=== PATIENT | female | born 1985 | race Caucasian/White ===

== ENCOUNTER 2017-01-29 05:54 | Emergency (ER) | payer OTHER ==
[~2017-01-29] VITALS: Ht 175.3 cm; Wt 90.0 kg
[~2017-01-29 05:54] MED LIST: IBUP600 PO; OXYC1SOL5 PO
[2017-01-29 05:57] VITALS: PULSE 175; RESP 20; O2SAT 98
[2017-01-29 06:00] VITALS: RESP 18; O2SAT 100
[2017-01-29 06:04] VITALS: BP 142/78; PULSE 177; RESP 18; O2SAT 97
[2017-01-29] MEDS ORDERED: ADENOSINE IV SOLN 3 MG/ML 2 ML VIAL ONE (06:06)
[2017-01-29 06:11] VITALS: BP 131/70; PULSE 105; RESP 18; O2SAT 99
[2017-01-29] MEDS ORDERED: ADENOSINE IV SOLN 3 MG/ML 2 ML VIAL IV PUSH ONE (06:15)
[2017-01-29] MEDS ORDERED: SODIUM CHLORIDE 0.9% FLUSH 10 ML FLUSH IVF PRN (06:15)
[2017-01-29 06:40] LABS: AUTOMATED NEUTROPHIL # 11.2 TH/MM3 (1.8-7.7); BASOPHIL # 0.1 TH/MM3 (0-0.2); BASOPHIL % 0.4 % (0.0-2.0); EOSINOPHIL # 0.1 TH/MM3 (0-0.4); EOSINOPHIL % 0.8 % (0.0-4.0); HEMATOCRIT 44.8 % (35.0-46.0); LYMPH % 31.3 % (9.0-44.0); LYMPHOCYTE # 5.7 TH/MM3 (1.0-4.8); MEAN CELL VOLUME 91.4 FL (80.0-100.0); MONO % 5.6 % (0.0-8.0); NEUT % 61.9 % (16.0-70.0); PLATELET COUNT 223 TH/MM3 (150-450); RED BLOOD COUNT 4.91 MIL/MM3 (4.00-5.30); WHITE BLOOD COUNT 18.1 TH/MM3 (4.0-11.0)
[2017-01-29 06:44] LABS: HEMO FLAGS AUTO DIFF
[2017-01-29 06:46] LABS: APTT (PATIENT) 25.7 SEC (24.3-30.1); INTERNATIONAL NORMALIZED RATIO 0.9 RATIO; PROTHROMBIN TIME - PATIENT 10.4 SEC (9.8-11.6)
--- NOTE | 2017-01-29 06:54 | RADRPT ---
EXAM DATE/TIME: 01/29/2017 06:34 [place] COMPARISON: No previous studies available for comparison. INDICATIONS : Chest pain. MEDICAL HISTORY : None. SURGICAL HISTORY : None. ENCOUNTER: Initial ACUITY: 1 day PAIN SCORE: 7/10 LOCATION: Bilateral chest FINDINGS: A single view of the chest demonstrates the lungs to be symmetrically aerated without evidence of mas s, infiltrate or effusion. The cardiomediastinal contours are unremarkable. Osseous structures are intact. CONCLUSION: No acute cardiopulmonary process. Jitendra Chance MD on January 29, 2017 at 6:52 Board Certified Radiologist. This report was verified electronically.
[2017-01-29 07:03] LABS: ANION GAP 8 MEQ/L (5-15); BICARBONATE 23.7 MEQ/L (21.0-32.0); BLOOD UREA NITROGEN 10 MG/DL (7-18); CHLORIDE 106 MEQ/L (98-107); GLOMERULAR FILTRATION RATE 105 ML/MIN (>89); POTASSIUM 3.9 MEQ/L (3.5-5.1); SODIUM (NA) 138 MEQ/L (136-145)
[2017-01-29 07:04] VITALS: BP 115/67; PULSE 109; RESP 24; O2SAT 99
[2017-01-29 07:04] LABS: CREATINE KINASE 46 U/L (26-192)
[2017-01-29 07:21] LABS: PLATELET ESTIMATE SMEAR NORMAL (NORMAL); PLATELET MORPHOLOGY NORMAL (NORMAL); POLYS (SEG NEUTROPHILS) 55 % (16-70); SCAN/DIFF FINAL DIFF MANUAL; WBC DIFF SAMPLE 100
--- NOTE | 2017-01-29 07:22 | PD ---
Physical Exam Date Seen by Provider: Jan 29, 2017 Time Seen by Provider: 07:00 Narrative Case signed out to me by Dr. Riley at 7 AM, please see previous notes for further details, here with SVTs. She was given several doses of it in accord with conversion to normal sinus rhythm at a rate of 90 bpm. She is much more comfortable now. Lab work did not indicate significant metabolic issues. Her TSH is somewhat depressed. She has no previous thyroid history. On reevaluation at 7:20 AM, she is awake, alert, oriented 3, states she feels much better. She has no signs of anxiety or any other symptoms. I do not think that this is a thyroid storm. However, she will need further evaluation of her thyroid function and cardiac function. She should avoid possible triggers such as drug and alcohol use, caffeine use. She should follow-up with her primary care physician. Return for worsening in symptoms as necessary. The plan has been discussed with her and she states understanding. Data Data Last Documented VS Vital Signs Date Time Temp Pulse Resp B/P (MAP) Pulse Ox O2 Delivery O2 Flow Rate FiO2 01/29/17 07:04 109 24 115/67 (83) 99 Nasal Cannula 2.00 Orders Orders Adenosine Inj (Adenocard Inj) (01/29/17 06:06) Basic Metabolic Panel (Bmp) (01/29/17 06:13) Ckmb (Isoenzyme) Profile (01/29/17 06:13) Complete Blood Count With Diff (01/29/17 06:13) Magnesium (Mg) (01/29/17 06:13) Prothrombin Time / Inr (Pt) (01/29/17 06:13) Act Partial Throm Time (Ptt) (01/29/17 06:13) Troponin I (01/29/17 06:13) Chest, Single Ap (01/29/17 06:13) Ecg Monitoring (01/29/17 06:13) Iv Access Insert/Monitor (01/29/17 06:13) Oximetry (01/29/17 06:13) Oxygen Administration (01/29/17 06:13) Sodium Chloride 0.9% Flush (Ns Flush) (01/29/17 06:15) Adenosine Inj (Adenocard Inj) (01/29/17 06:15) Thyroid Stimulating Hormone (01/29/17 06:13) Ed Urine Pregnancytest Poc (01/29/17 06:13) Drug Screen, Random Urine (01/29/17 06:13) Electrocardiogram (01/29/17 ) Electrocardiogram (01/29/17 ) Labs Laboratory Tests Test 01/29/17 06:14 White Blood Count 18.1 TH/MM3 Red Blood Count 4.91 MIL/MM3 Hemoglobin 15.2 GM/DL Hematocrit 44.8 % Mean Corpuscular Volume 91.4 FL Mean Corpuscular Hemoglobin 31.0 PG Mean Corpuscular Hemoglobin Concent 34.0 % Red Cell Distribution Width 13.0 % Platelet Count 223 TH/MM3 Mean Platelet Volume 9.8 FL Neutrophils (%) (Auto) 61.9 % Lymphocytes (%) (Auto) 31.3 % Monocytes (%) (Auto) 5.6 % Eosinophils (%) (Auto) 0.8 % Basophils (%) (Auto) 0.4 % Neutrophils # (Auto) 11.2 TH/MM3 Lymphocytes # (Auto) 5.7 TH/MM3 Monocytes # (Auto) 1.0 TH/MM3 Eosinophils # (Auto) 0.1 TH/MM3 Basophils # (Auto) 0.1 TH/MM3 CBC Comment AUTO DIFF Prothrombin Time 10.4 SEC Prothromb Time International Ratio 0.9 RATIO Activated Partial Thromboplast Time 25.7 SEC Blood Urea Nitrogen 10 MG/DL Creatinine 0.65 MG/DL Random Glucose 152 MG/DL Calcium Level 8.9 MG/DL Magnesium Level 2.0 MG/DL Sodium Level 138 MEQ/L Potassium Level 3.9 MEQ/L Chloride Level 106 MEQ/L Carbon Dioxide Level 23.7 MEQ/L Anion Gap 8 MEQ/L Estimat Glomerular Filtration Rate 105 ML/MIN Total Creatine Kinase 46 U/L Troponin I 0.03 NG/ML Thyroid Stimulating Hormone 3rd Gen LESS THAN 0.005 uIU/ML [facility] Medical Record Reviewed: Yes Supervised Visit with RICH: No Diagnosis Primary Impression: SVT (supraventricular tachycardia) Scripts No Active Prescriptions or Reported Meds Disposition: 01 DISCHARGE HOME Condition: Stable Kaley Walsh MD Jan 29, 2017 07:22
--- NOTE | 2017-01-29 07:36 | PD ---
HPI Chief Complaint: Cardiac Complaint Time Seen by Provider: 06:13 Travel History International Travel<30 days: No Contact w/Intl Traveler<30days: No Traveled to known affect area: No History of Present Illness HPI Patient is a 31 year old female with a history of palpiations which has never had to be worked up in the past presents to the ER for evaluation of tachycardia for the past 8 hours or so. She states she's never had to receive medications to lower her heart rate before. Adamantly denies drug abuse. Patient has had a history of drug abuse in the past according to chart. She states that she is having some chest discomfort as well. Denies any SOB, denies any n/v/d. PFSH Past Medical History Diminished Hearing: No Social History Alcohol Use: Yes (OCC) Tobacco Use: Yes (1/2 PPD) Substance Use: No Allergies-Medications (Allergen,Severity, Reaction): Coded Allergies: No Known Allergies (Verified , 01/29/17) Reported Meds & Prescriptions Reported Meds & Active Scripts Active No Active Prescriptions or Reported Medications Review of Systems Except as stated in HPI: all other systems reviewed are Neg Physical Exam Narrative GENERAL: WD/WN mildly anxious. SKIN: Warm and dry. HEAD: Atraumatic. Normocephalic. EYES: Pupils equal and round. No scleral icterus. No injection or drainage. ENT: No nasal bleeding or discharge. Mucous membranes pink and moist. NECK: Trachea midline. No JVD. CARDIOVASCULAR: Regular rhythm, very tachycardic. 2+ bilaterally equal pulses in all four extremities. RESPIRATORY: No accessory muscle use. Clear to auscultation. Breath sounds equal bilaterally. GASTROINTESTINAL: Abdomen soft, non-tender, nondistended. Hepatic and splenic margins not palpable. MUSCULOSKELETAL: Extremities without clubbing, cyanosis, or edema. No obvious deformities. NEUROLOGICAL: Awake and alert. No obvious cranial nerve deficits. Motor grossly within normal limits. Five out of 5 muscle strength in the arms and legs. Normal speech. PSYCHIATRIC: Appropriate mood and affect; insight and judgment normal. Data Data Last Documented VS Vital Signs Date Time Temp Pulse Resp B/P (MAP) Pulse Ox O2 Delivery O2 Flow Rate FiO2 01/29/17 07:04 109 24 115/67 (83) 99 Nasal Cannula 2.00 Orders Orders Adenosine Inj (Adenocard Inj) (01/29/17 06:06) Basic Metabolic Panel (Bmp) (01/29/17 06:13) Ckmb (Isoenzyme) Profile (01/29/17 06:13) Complete Blood Count With Diff (01/29/17 06:13) Magnesium (Mg) (01/29/17 06:13) Prothrombin Time / Inr (Pt) (01/29/17 06:13) Act Partial Throm Time (Ptt) (01/29/17 06:13) Troponin I (01/29/17 06:13) Chest, Single Ap (01/29/17 06:13) Ecg Monitoring (01/29/17 06:13) Iv Access Insert/Monitor (01/29/17 06:13) Oximetry (01/29/17 06:13) Oxygen Administration (01/29/17 06:13) Sodium Chloride 0.9% Flush (Ns Flush) (01/29/17 06:15) Adenosine Inj (Adenocard Inj) (01/29/17 06:15) Thyroid Stimulating Hormone (01/29/17 06:13) Ed Urine Pregnancytest Poc (01/29/17 06:13) Drug Screen, Random Urine (01/29/17 06:13) Electrocardiogram (01/29/17 ) Electrocardiogram (01/29/17 ) Labs Laboratory Tests Test 01/29/17 06:14 White Blood Count 18.1 TH/MM3 Red Blood Count 4.91 MIL/MM3 Hemoglobin 15.2 GM/DL Hematocrit 44.8 % Mean Corpuscular Volume 91.4 FL Mean Corpuscular Hemoglobin 31.0 PG Mean Corpuscular Hemoglobin Concent 34.0 % Red Cell Distribution Width 13.0 % Platelet Count 223 TH/MM3 Mean Platelet Volume 9.8 FL Neutrophils (%) (Auto) 61.9 % Lymphocytes (%) (Auto) 31.3 % Monocytes (%) (Auto) 5.6 % Eosinophils (%) (Auto) 0.8 % Basophils (%) (Auto) 0.4 % Neutrophils # (Auto) 11.2 TH/MM3 Lymphocytes # (Auto) 5.7 TH/MM3 Monocytes # (Auto) 1.0 TH/MM3 Eosinophils # (Auto) 0.1 TH/MM3 Basophils # (Auto) 0.1 TH/MM3 CBC Comment AUTO DIFF Differential Total Cells Counted 100 Neutrophils % (Manual) 55 % Lymphocytes % 41 % Monocytes % 4 % Neutrophils # (Manual) 10.0 TH/MM3 Differential Comment FINAL DIFF MANUAL Platelet Estimate NORMAL Platelet Morphology Comment NORMAL Red Cell Morphology Comment NORMAL Prothrombin Time 10.4 SEC Prothromb Time International Ratio 0.9 RATIO Activated Partial Thromboplast Time 25.7 SEC Blood Urea Nitrogen 10 MG/DL Creatinine 0.65 MG/DL Random Glucose 152 MG/DL Calcium Level 8.9 MG/DL Magnesium Level 2.0 MG/DL Sodium Level 138 MEQ/L Potassium Level 3.9 MEQ/L Chloride Level 106 MEQ/L Carbon Dioxide Level 23.7 MEQ/L Anion Gap 8 MEQ/L Estimat Glomerular Filtration Rate 105 ML/MIN Total Creatine Kinase 46 U/L Troponin I 0.03 NG/ML Thyroid Stimulating Hormone 3rd Gen LESS THAN 0.005 uIU/ML MDM Medical Decision Making Medical Screen Exam Complete: Yes Emergency Medical Condition: Yes Differential Diagnosis SVT, Afib, VT, sinus tach, electrolyte abnormality. Narrative Course Patient roomed in ED, on arrival found to be in SVT. Given adenosine 12 mg IVP. Patient had conversion to sinus tachycardia. Repeat EKG reassuring. Basic labs ordered including TSH for first episode of SVT, discussed with Dr. Garcia at shift change to follow up labs and disposition appropriately. Diagnosis Primary Impression: SVT (supraventricular tachycardia) Scripts No Active Prescriptions or Reported Meds Disposition: 01 DISCHARGE HOME Condition: Stable [place] Riley MD Jan 29, 2017 07:36
--- NOTE | 2017-01-30 07:47 | EKG ---
Date Performed: 01/29/2017 Time Performed: 06:04:07 PTAGE: 31 years EKG: SUPRAVENTRICULAR TACHYCARDIA ABNORMAL RHYTHM ECG PREVIOUS TRACING : 12/26/2015 11.07 Since previous tracing, the supraventricular tachycardia is new. DOCTOR: Davin Garcia Interpretating Date/Time 01/30/2017 07:47:13
--- NOTE | 2017-01-30 07:49 | EKG ---
Date Performed: 01/29/2017 Time Performed: 06:13:06 PTAGE: 31 years EKG: SINUS TACHYCARDIA ABNORMAL RHYTHM ECG PREVIOUS TRACING 01/29/17 Since previous tracing, heart rate has gone from 176 to 103. Compatib le with termination of the rapid supraventricular tachycardia. DOCTOR: Davin Garcia Interpretating Date/Time 01/30/2017 07:48:48
== END 2017-01-29 07:49 | disposition home or self-care (01) ==
LOC: NEPE 05:54
DX: I47.1 Supraventricular tachycardia (principal)
CPT/HCPCS: 71010; 80048; 80307; 82550; 83735; 84443; 84484; 84703; 85007; 85027; 85610; 85730; 93005; 96374; 99285; J0153